=== PATIENT | female | born 1950 | race Caucasian/White ===

== ENCOUNTER 2023-04-25 09:11 | Emergency (ER) | payer MEDICARE, SELFPAY ==
[2023-04-25 09:16] VITALS: BP 136/86; PULSE 78; RESP 18; TEMP 36.8; O2SAT 98; BMI 21.9
--- NOTE | 2023-04-25 09:30 | ED_ITS ---
HPI - Nausea/Vomiting/Diarrhea General Chief complaint: Nausea/Vomiting/Diarrhea Stated complaint: ABDMOINAL PAIN/ DIARREAH Time Seen by Provider: 04/25/23 09:16 Source: patient Source comment: patient Mode of arrival: walk-in Limitations: no limitations History of Present Illness HPI Narrative: 73-year-old female presents for diarrhea. She's been having it several times a day for five days. She saw specks of blood in it but otherwise no blood. She's been a little bit nauseous but no vomiting. No fever. No recent hospitalizations or antibiotic usage and no family members aren't ill. Related Data Home Medications Medication Instructions Recorded Confirmed amlodipine 5 mg tablet 5 mg PO DAILY 04/25/23 04/25/23 aspirin 81 mg capsule 81 mg PO DAILY 04/25/23 04/25/23 atenolol 50 mg tablet 50 mg PO Q24H 04/25/23 04/25/23 chlorthalidone 25 mg tablet 25 mg PO DAILY 04/25/23 04/25/23 citalopram 20 mg tablet 20 mg PO DAILY 04/25/23 04/25/23 coffee extract 100 mg-phosphatidyl cap PO 04/25/23 serine 100 mg capsule (Neuriva Original) multivitamin (Daily Multi-Vitamin 1 tab PO DAILY 04/25/23 04/25/23 tablet) potassium chloride 10 mEq 10 meq PO DAILY 04/25/23 04/25/23 tablet,extended release simvastatin 20 mg tablet 20 mg PO DAILY 04/25/23 04/25/23 Allergies Allergy/AdvReac Type Severity Reaction Status Date / Time No Known Drug Allergies Allergy Verified 04/25/23 09:19 Review of Systems ROS Narrative A ten point review of systems is negative except as noted above. PFSH PFSH Social History Smoking status: Never smoker Exam Narrative Exam Narrative: Nurses note and vital signs reviewed and patient is not hypoxic. General: The patient appears well and in no apparent distress. Patient is resting comfortably on cart. Skin: Warm, dry, no pallor noted. There is no rash noted. Head: Normocephalic, atraumatic Eye: Normal conjunctiva, no drainage Ears, Nose, Mouth, and Throat: oral mucosa is mildly dry Cardiovascular: Regular Rate and Rhythm Respiratory: Patient is in no distress, no accessory muscle use, lungs are clear to auscultation, no wheezing, rales or rhonchi Back: non-tender GI: Normal bowel sounds, no tenderness to palpation, no masses appreciated. No rebound, guarding, or rigidity noted. Musculoskeletal: The patient has no evidence of calf tenderness, no pitting edema, symmetrical pulses noted bilaterally Neurological: A&O, normal speech Psychiatric: Cooperative Constitutional Vital Signs, click to edit/add: Last Vital Signs Temp 98.3 F 04/25/23 10:01 Pulse 78 04/25/23 13:32 Resp 16 04/25/23 13:32 BP 115/63 04/25/23 13:32 Pulse Ox 96 04/25/23 13:32 O2 Del Method Room Air 04/25/23 09:16 Course Vital Signs Vital signs: Vital Signs Temperature 98.3 F 04/25/23 09:16 Pulse Rate 78 04/25/23 09:16 Respiratory Rate 18 04/25/23 09:16 Blood Pressure 136/86 H 04/25/23 09:16 Pulse Oximetry 98 04/25/23 09:16 Oxygen Delivery Method Room Air 04/25/23 09:16 Temperature 98.3 F 04/25/23 10:01 Pulse Rate 78 04/25/23 13:32 Respiratory Rate 16 04/25/23 13:32 Blood Pressure 115/63 04/25/23 13:32 Pulse Oximetry 96 04/25/23 13:32 Oxygen Delivery Method Room Air 04/25/23 09:16 MDM - Nausea/Vomiting/Diarrhea MDM Narrative Medical decision making narrative: blood work is unremarkable. CAT scan shows known stones in each kidney. She was unable to provide us a stool specimen. She's never had a colonoscopy and I've spoken to her about that issue and that she should talk to her family doctor about that. Her daughter and I have encouraged her to get a colonoscopy. She doesn't require admission to the hospital at this point. She was offered admission but feels that she can go home. Treatment diagnosis and follow-up were discussed with the patient and her daughter. Differential Diagnosis Differential diagnosis: Likely traveler's diarrhea, food poisoning, gastroenteritis and dehydration Lab Data Attestation: I reviewed the patient's lab results. Labs: Lab Results 04/25/23 04/25/23 Range/Units 09:25 10:20 WBC 11.1 H (4.0-11.0) 10^3/uL RBC 4.58 (4.20-5.40) 10^6/uL Hgb 13.8 (12.0-16.0) g/dL Hct 39.9 (36.0-48.0) % MCV 87.1 (81.0-99.0) fL MCH 30.1 (26.7-34.0) pg MCHC 34.6 (29.9-35.2) g/dL RDW 12.3 (11.0-15.0) % Plt Count 251 (150-450) 10^3/uL MPV 9.3 L (9.5-13.5) fL Neut % (Auto) 74.8 (43.0-75.0) % Lymph % (Auto) 17.5 L (20.5-60.0) % Bartholomew % (Auto) 6.9 (1.7-12.0) % Eos % (Auto) 0.3 L (0.9-7.0) % Baso % (Auto) 0.3 (0.2-2.0) % Neut # (Auto) 8.3 H (1.4-6.5) 10^3/uL Lymph # (Auto) 2.0 (1.2-3.8) 10^3/uL Bartholomew # (Auto) 0.8 (0.3-0.8) 10^3/uL Eos # (Auto) 0.0 (0.0-0.7) 10^3/uL Baso # (Auto) 0.0 (0.0-0.1) 10^3/uL Abs Immat Gran (auto) 0.02 (0.00-0.03) 10^3/uL Imm/Tot Granulo (auto) 0.2 (0.0-0.5) % Sodium 135 L (136-145) mmol/L Potassium 2.5 L* (3.5-5.1) mmol/L Chloride 96 L (98-107) mmol/L Carbon Dioxide 28.4 (21.0-32.0) mmol/L Anion Gap 13.1 BUN 17.0 (7.0-18.0) mg/dL Creatinine 0.99 (0.55-1.02) mg/dL Est GFR ( Amer) >60 (>=60) Est GFR (Non-Af Amer) 55 L (>=60) BUN/Creatinine Ratio 17.2 Glucose 128 H (74-106) mg/dL Calcium 9.9 (8.5-10.1) mg/dL Urine Color Yellow (YELLOW) Urine Clarity Clear (CLEAR) Urine pH 6.0 (5.0-9.0) Ur Specific Basye 1.010 (1.005-1.025) Urine Protein Negative (NEG/TRACE) mg/dL Urine Glucose (UA) Negative (NEGATIVE) mg/dL Urine Ketones 40 A (NEGATIVE) mg/dL Urine Occult Blood Trace-i (NEGATIVE) Urine Nitrite Negative (NEGATIVE) Urine Bilirubin Negative (NEGATIVE) Urine Urobilinogen 0.2 (0.2-1.0) EU/dL Ur Leukocyte Esterase Negative (NEGATIVE) Discharge Plan Discharge Chief Complaint: Nausea/Vomiting/Diarrhea Clinical Impression: Diarrhea Patient Disposition: Home, Self-Care Time of Disposition Decision: 13:52 Condition: Good Mode of Transportation: Private Vehicle Prescriptions / Home Meds: No Action amlodipine 5 mg tablet 5 mg PO DAILY atenolol 50 mg tablet 50 mg PO Q24H chlorthalidone 25 mg tablet 25 mg PO DAILY citalopram 20 mg tablet 20 mg PO DAILY potassium chloride 10 mEq tablet extended release 10 meq PO DAILY simvastatin 20 mg tablet 20 mg PO DAILY aspirin 81 mg capsule 81 mg PO DAILY Neuriva Original 100-100 mg capsule PO multivitamin [Daily Multi-Vitamin] Tablet 1 tab PO DAILY Instructions: Chronic Diarrhea (ED) Stand Alone Forms: Portal Instructions Referrals: DEBBIE VARGAS [Primary Care Provider] - 1 week
[2023-04-25] MEDS: 0.9 % SODIUM CHLORIDE 1,000 ML 1000 ML IV (09:36)
[2023-04-25] MEDS: ONDANSETRON PF 4 MG/2 ML VIAL IV (09:36)
[2023-04-25 09:56] LABS: Basophils Percent Auto 0.3 % (0.2-2.0); Eosinophils Percent Auto 0.3 % (0.9-7.0); Hematocrit 39.9 % (36.0-48.0); Hemoglobin 13.8 g/dL (12.0-16.0); Immature Granulocytes Abs Auto 0.02 10^3/uL (0.00-0.03); Immature Granulocytes Pct Auto 0.2 % (0.0-0.5); Lymphocytes Percent Auto 17.5 % (20.5-60.0); Mean Corpuscular HGB Conc 34.6 g/dL (29.9-35.2); Mean Corpuscular Hemoglobin 30.1 pg (26.7-34.0); Mean Corpuscular Volume 87.1 fL (81.0-99.0); Mean Platelet Volume 9.3 fL (9.5-13.5); Monocytes Absolute Auto 0.8 10^3/uL (0.3-0.8); Monocytes Percent Auto 6.9 % (1.7-12.0); Neutrophils Absolute Auto 8.3 10^3/uL (1.4-6.5); Neutrophils Percent Auto 74.8 % (43.0-75.0); Platelet Count 251 10^3/uL (150-450); Red Blood Count 4.58 10^6/uL (4.20-5.40); Red Cell Distribution Width 12.3 % (11.0-15.0); White Blood Count 11.1 10^3/uL (4.0-11.0)
[2023-04-25 10:01] VITALS: TEMP 36.8
[2023-04-25 10:04] LABS: Anion Gap 13.1; BUN Creatinine Ratio 17.2; Calcium 9.9 mg/dL (8.5-10.1); Carbon Dioxide 28.4 mmol/L (21.0-32.0); Chloride 96 mmol/L (98-107); Estimated GFR (African America >60 (>=60); Estimated GFR (Non-African Ame 55 (>=60); Glucose 128 mg/dL (74-106); Sodium 135 mmol/L (136-145)
[2023-04-25 10:07] LABS: Potassium 2.5 mmol/L (3.5-5.1)
[2023-04-25] MEDS: LORAZEPAM 2 MG/ML 1 ML VIAL 0.5 MG IV (10:14)
[2023-04-25 10:32] VITALS: BP 123/55; PULSE 77; RESP 18; O2SAT 99
--- NOTE | 2023-04-25 11:11 | CT_ITS ---
The [address] [address] Patient Name: MIGUEL ANGEL MCDONALD MRN: [id number] date: 1950 Sex: F Assigned Patient Location: ER Current Patient Location: ER Accession/Order Number: [id number] Exam Date: 04/25/2023 11:15 Report Date: 04/25/2023 11:54 At the request of: ALEXANDRA HASSAN Procedure: CT abdomen pelvis wo con EXAM: CT abdomen pelvis wo con INDICATION: r/o kidney stone. Diarrhea for 4 days. COMPARISON: None. TECHNIQUE: Multiple contiguous axial CT images of the abdomen and pelvis were obtained without the use of intravenous contrast. Sagittal and coronal reconstructions were performed. Dose reduction techniques were achieved by using: automated exposure control and/or adjustment of mA and /or kV according to patient size and/or use of iterative reconstruction technique. FINDINGS: Evaluation of visceral organs limited by noncontrast technique. LOWER CHEST: Bibasilar subsegmental atelectasis. ABDOMEN AND PELVIS: Liver: Unremarkable. Biliary System: Normal gallbladder. No biliary ductal dilatation. Pancreas: Unremarkable. Spleen: Unremarkable. Adrenal Glands: Normal. Urinary System: Multiple nonobstructing bilateral renal stones measuring up to 7 mm. Left renal cysts, largest measuring 2.5 cm. No ureteral calculi or hydronephrosis. Normal bladder. Gastrointestinal Tract: Normal caliber bowel. No bowel wall thickening or inflammation. Normal appendix. Colonic diverticulosis without diverticulitis. Reproductive organs: Suspected calcified intramural fibroid. Vessels: Nonaneurysmal abdominal aorta with mild atherosclerotic calcifications. Lymph Nodes: No adenopathy. Peritoneum: No ascites or pneumoperitoneum. MUSCULOSKELETAL: Soft tissues: Unremarkable soft tissues. Bones: No acute osseous abnormality or suspicious osseous lesion. There are 1 anterolisthesis of L4 on L5. IMPRESSION: 1. No acute abdominal or pelvic process. 2. Bilateral nephrolithiasis. 3. Colonic diverticulosis without diverticulitis. Electronically authenticated by: TYLER PAREKH Date: 04/25/2023 11:54
[2023-04-25 11:54] VITALS: BP 115/70; PULSE 77; RESP 16; O2SAT 97
[2023-04-25 13:06] LABS: Bilirubin Urine NEGATIVE (NEGATIVE); Blood Urine TRACE-I (NEGATIVE); Clarity Urine CLEAR (CLEAR); Color Urine YELLOW (YELLOW); Glucose Urine UA NEGATIVE (NEGATIVE); Ketones Urine 40 mg/dL (NEGATIVE); Leukocyte Esterase Urine NEGATIVE (NEGATIVE); Nitrite Urine NEGATIVE (NEGATIVE); Protein Urine NEGATIVE (NEG/TRACE); Urobilinogen Urine 0.2 EU/dL (0.2-1.0)
[2023-04-25 13:32] VITALS: BP 115/63; PULSE 78; RESP 16; O2SAT 96
[2023-04-25 13:41] LABS: Urine Microscopic Indicated YES
[2023-04-25 13:55] LABS: Squamous Epithelial Cell Urine FEW #/LPF (NONE/RARE); WBC Urine 0-2 #/HPF (NONE SEEN)
[2023-04-25 13:56] LABS: Bacteria Urine TRACE #/HPF (NONE SEEN); Cast Seen? SEEN #/LPF (NONE SEEN); Crystals Seen? None Seen #/HPF (None Seen); Hyaline Casts Urine RARE; Mucus Urine TRACE (NONE SEEN); Urine Culture Indicated NO
[2023-04-25 14:03] VITALS: BP 119/59; PULSE 74; RESP 20; TEMP 36.7; O2SAT 97
== END 2023-04-25 14:06 | disposition home or self-care (01) ==
PROVIDERS: Emergency Provider Emergency Medicine; PCP Family Medicine
DX: R19.7 Diarrhea, unspecified (principal); N20.0 Calculus of kidney; Z79.82 Long term (current) use of aspirin; Z79.899 Other long term (current) drug therapy
CPT/HCPCS: 36415; 74176; 80048; 81003; 81015; 85025; 87045; 87493; 96361; 96374; 96375; 99285

== ENCOUNTER 2023-05-01 08:44 | Outpatient (REF) | payer MEDICARE, SELFPAY | END 2023-05-01 08:45 | disposition home or self-care (01) | LOC: LAB 08:44 | PROVIDERS: PCP Family Medicine; Visit Provider Family Medicine | DX: R19.7 Diarrhea, unspecified (principal) | CPT/HCPCS: 83631; 87045; 87046; 87177; 87209; 87425; 87427; 87493; G0328 ==

== ENCOUNTER 2023-05-02 17:56 | Observation (INO) | payer MEDICARE, SELFPAY ==
[2023-05-02 18:04] VITALS: BP 121/69; PULSE 69; RESP 18; TEMP 37.3; O2SAT 97; BMI 21.9
--- NOTE | 2023-05-02 18:19 | PC.NURSE ---
Pt has had diarrhea since April 18. Pt brought 2 stool samples to the [facility] one on Wednesday the and again on the . Pt has been having increasing confusion over the last 2 days and pt's PCP told the family to take her to the ER if this startd to happen again. Family states pt has had this happen in the past when she had a kidney stone. Pt denies any urinary symptoms at this time. Pt unable to answer questions at time of triage. Pt looked to family to answer most questions. Per family pt is normally able to carry on full conversations with no issues.
--- NOTE | 2023-05-02 18:21 | ED_ITS ---
Documented by User: BRANDI Linares 05/02/23 20:35 HPI - General Adult General Chief complaint: Nausea/Vomiting/Diarrhea Stated complaint: DIARRHEA SINCE APRIL 18 Time Seen by Provider: 05/02/23 18:20 Source: patient Mode of arrival: walk-in Limitations: no limitations History of Present Illness HPI narrative: patient is a 73-year-old female presents to the Emergency Room with her children for evaluation of altered mental status. Patient started with diarrhea in April, has had up to 3-4 watery stools a day, she's had similar episode back in August that self resolved, the patient has declined to go for gastrointestinal consultatioon or colonoscopy for further investigation. The patient lives alone by herself, family checks on her regularly. She can typically balance her rolo ckbook but does require supervision. Patient today is unable to tell me the day or the month. She is alert to her name and her children. She is vague describing her recent symptoms in the family states her change in mentation started on Wednesday. Patient provided a stool sample outpatient, and was seen on April 25 for her diarrhea. The patient currently denies any chest pain or shortness of breath. She reports abdominal pain and cramping only with episodes of diarrhea which typically comes after eating. Family fears she has not been eating well because she has diarrhea and they have noted some progressive weight loss over the past six months. The patient had a admission at [facility] [place] last year for large kidney stone removal. Patient appears in no distress, her gait appears slightly off balance, but manageable. Family states that her mentation and gait are new changes from Wednesday. MD complaint: patient taking Imodium with temporary relief Related Data Home Medications Medication Instructions Recorded Confirmed amlodipine 5 mg tablet 5 mg PO DAILY 04/25/23 05/03/23 aspirin 81 mg capsule 81 mg PO DAILY 04/25/23 05/03/23 atenolol 50 mg tablet 50 mg PO Q24H 04/25/23 05/03/23 chlorthalidone 25 mg tablet 25 mg PO DAILY 04/25/23 05/03/23 citalopram 20 mg tablet 20 mg PO DAILY 04/25/23 05/03/23 coffee extract 100 mg-phosphatidyl 2 cap PO DAILY 04/25/23 05/03/23 serine 100 mg capsule (Neuriva Original) multivitamin (Daily Multi-Vitamin 1 tab PO DAILY 04/25/23 05/03/23 tablet) potassium chloride 10 mEq 10 meq PO DAILY 04/25/23 05/03/23 tablet,extended release simvastatin 20 mg tablet 20 mg PO DAILY 04/25/23 05/03/23 Allergies Allergy/AdvReac Type Severity Reaction Status Date / Time No Known Drug Allergies Allergy Verified 04/25/23 09:19 Review of Systems ROS Narrative limited review of systems, confirmed with patient's family at bedside Constitutional Reports: change in weight, fatigue and malaise; Denies: fever Eyes Denies: change in vision Cardiovascular Denies: chest pain Respiratory Denies: shortness of breath or cough Gastrointestinal Reports: diarrhea Genitourinary Denies: painful urination or urinary frequency Integumentary/Breast Denies: rash or itching Neurological Denies: headache Psychiatric Denies: anxiety PFSH PFSH Social History Within the past year, how often did you have a drink containing alcohol: never Within the past year, how often did you have six or more drinks on one occasion: never Score interpretation: A score less than 3 is consistent with normal alcohol consumption. Smoking status: Never smoker Second hand tobacco smoke exposure: No Non-prescribed substance use: denies use Previous occupational history: [employer] Highest level of school completed/degree received: high school graduate Are you now , , , , never or living with a partner: In a typical week, how many times do you talk on the telephone with family, friends, or neighbors: 3 or more times per week How often do you get together with friends or relatives: 3 or more times per week How often do you attend buddhist or zoroastrian services: 4 or more times per year Do you belong to any clubs or organizations such as buddhist groups unions, fraternal or athletic groups, or school groups: no Total score: 2 Score interpretation: A score of greater than or equal to 2 indicates the lowest level of social isolation. Little interest or pleasure in doing things: not at all Feeling down, depressed, or hopeless: not at all Feel stressed/tense/nervous/anxious/difficulty sleeping: not at all Do you think of yourself as: straight/heterosexual Gender Identity: female Exam Narrative Exam Narrative: Vital signs and nurses notes reviewed. The patient is not hypoxic. General: The patient appears well and in no apparent distress. Patient is resting comfortably on cart.patient observed while walking appears unsteady. Skin: Warm, dry, no pallor noted. The patient has no evidence of rash, petechiae, or purpura noted. Head: Normocephalic, atraumatic, no temporal arterial tenderness Neck: Supple, trachea mid-line, no tenderness, no lymphadenopathy. No meningeal signs. No nuchal rigidity.no carotid bruit Eye: Pupils are equal, round and reactive to light, EOMI, patient wearing glasses Ears, Nose, Mouth, and Throat: Oral mucosa is moist, TMs are clear bilaterally, no hemotympanum noted.patient has hearing aids bilaterally Cardiovascular: Regular Rate and Rhythm, no prominent murmur, Respiratory: Patient is in no distress, no accessory muscle use, lungs are clear to auscultation, no wheezing, rales or rhonchi Back: non-tender, no CVA tenderness Musculoskeletal: normal ROM, no tenderness, no swelling, normal strength 5/5. Normal pulses to radial 2+ bilaterally and 2+ at DP and PT bilaterally and symmetrically. GI: Normal bowel sounds, no tenderness to palpation, no masses appreciated. No rebound, guarding, or rigidity noted. Neurological: A&O person and place, unaware of date or month., normal equal cattle rancher strength, normal finger to nose, no pronator drift. The patient is off balance with ambulation. The patient has normal speech. The patient has normal coordination with heel to ruiz, but does require multiple prompting to follow commands . Normal motor and sensory observed. Psychiatric: Cooperative Constitutional Vital Signs, click to edit/add: Last Vital Signs Temp 98.3 F 05/04/23 05:23 Pulse 62 05/04/23 10:06 Resp 16 05/04/23 05:23 BP 145/78 H 05/04/23 05:23 Pulse Ox 95 05/04/23 05:23 O2 Del Method Room Air 05/04/23 05:23 Course Vital Signs Vital signs: Vital Signs Temperature 99.1 F 05/02/23 18:04 Pulse Rate 69 05/02/23 18:04 Respiratory Rate 18 05/02/23 18:04 Blood Pressure 121/69 H 05/02/23 18:04 Pulse Oximetry 97 05/02/23 18:04 Oxygen Delivery Method Room Air 05/02/23 18:04 Temperature 98.3 F 05/04/23 05:23 Pulse Rate 62 05/04/23 10:06 Respiratory Rate 16 05/04/23 05:23 Blood Pressure 145/78 H 05/04/23 05:23 Pulse Oximetry 95 05/04/23 05:23 Oxygen Delivery Method Room Air 05/04/23 05:23 Medical Decision Making MDM Narrative Medical decision making narrative: patient with diarrhea for multiple weeks, change in mentation noted Wednesday, patient appears pleasantly confused, off balance with ambulation. Patient without any complaints of pain or discomfort, denies chest pain or shortness of breath. NIH= 1 ( month/ Age) patient with no prior history of stroke, we discussed her mental status changes. CT findings. Patient was found to be low on potassium and magnesium, she was given 50 mEq by mouth, magnesium 2 g IV. Patient had urinalysis without evidence of infection. Recommended admission for further evaluation of patient's altered mental status in the setting of her chronic diarrhea. urinalysis without evidence of infection, sedimentation rate and CRP within normal limits. Lactic acid was elevated. Patient receiving IV fluid bolus, we discussed her CT of the head concerning for possible remote stroke, given her change in mentation since Wednesday recommend admission for further evaluation. Spoke with Dr. Pierson hospitalist who agreed to admit observation [facility] on telemetry. Patient and family agreeable to admission for further evaluation of altered mental status Medical Records Medical records reviewed: Yes I reviewed the patient's medical records Medical records narrative: Procedure: CT abdomen pelvis wo con EXAM: CT abdomen pelvis wo con INDICATION: r/o kidney stone. Diarrhea for 4 days. COMPARISON: None. TECHNIQUE: Multiple contiguous axial CT images of the abdomen and pelvis were obtained without the use of intravenous contrast. Sagittal and coronal reconstructions were performed. Dose reduction techniques were achieved by using: automated exposure control and/or adjustment of mA and /or kV according to patient size and/or use of iterative reconstruction technique. FINDINGS: Evaluation of visceral organs limited by noncontrast technique. LOWER CHEST: Bibasilar subsegmental atelectasis. ABDOMEN AND PELVIS: Liver: Unremarkable. Biliary System: Normal gallbladder. No biliary ductal dilatation. Pancreas: Unremarkable. Spleen: Unremarkable. Adrenal Glands: Normal. Urinary System: Multiple nonobstructing bilateral renal stones measuring up to 7 mm. Left renal cysts, largest measuring 2.5 cm. No ureteral calculi or hydronephrosis. Normal bladder. Gastrointestinal Tract: Normal caliber bowel. No bowel wall thickening or inflammation. Normal appendix. Colonic diverticulosis without diverticulitis. Reproductive organs: Suspected calcified intramural fibroid. Vessels: Nonaneurysmal abdominal aorta with mild atherosclerotic calcifications. Lymph Nodes: No adenopathy. Peritoneum: No ascites or pneumoperitoneum. MUSCULOSKELETAL: Soft tissues: Unremarkable soft tissues. Bones: No acute osseous abnormality or suspicious osseous lesion. There are 1 anterolisthesis of L4 on L5. IMPRESSION: 1. No acute abdominal or pelvic process. 2. Bilateral nephrolithiasis. 3. Colonic diverticulosis without diverticulitis. Electronically authenticated by: TYLER PAREKH Date: 04/25/2023 11:54 Lab Data Labs: Lab Results 05/02/23 05/02/23 05/02/23 Range/Units 18:30 19:21 19:24 WBC 6.8 (4.0-11.0) 10^3/uL RBC 4.00 L (4.20-5.40) 10^6/uL Hgb 12.2 (12.0-16.0) g/dL Hct 35.7 L (36.0-48.0) % MCV 89.3 (81.0-99.0) fL MCH 30.5 (26.7-34.0) pg MCHC 34.2 (29.9-35.2) g/dL RDW 12.4 (11.0-15.0) % Plt Count 211 (150-450) 10^3/uL MPV 9.6 (9.5-13.5) fL Neut % (Auto) 51.8 (43.0-75.0) % Lymph % (Auto) 34.0 (20.5-60.0) % [place] % (Auto) 11.9 (1.7-12.0) % Eos % (Auto) 1.8 (0.9-7.0) % Baso % (Auto) 0.4 (0.2-2.0) % Neut # (Auto) 3.5 (1.4-6.5) 10^3/uL Lymph # (Auto) 2.3 (1.2-3.8) 10^3/uL [place] # (Auto) 0.8 (0.3-0.8) 10^3/uL Eos # (Auto) 0.1 (0.0-0.7) 10^3/uL Baso # (Auto) 0.0 (0.0-0.1) 10^3/uL Abs Immat Gran (auto) 0.01 (0.00-0.03) 10^3/uL Imm/Tot Granulo (auto) 0.1 (0.0-0.5) % ESR 23 (<=30) mm/hr PT 11.6 (9.0-11.6) sec INR 1.10 Sodium 134 L (136-145) mmol/L Potassium 2.7 L* (3.5-5.1) mmol/L Chloride 95 L (98-107) mmol/L Carbon Dioxide 30.6 (21.0-32.0) mmol/L Anion Gap 11.1 BUN 21.0 H (7.0-18.0) mg/dL Creatinine 0.99 (0.55-1.02) mg/dL Est GFR ( Amer) >60 (>=60) Est GFR (Non-Af Amer) 55 L (>=60) BUN/Creatinine Ratio 21.2 Glucose 140 H (74-106) mg/dL Lactate 2.3 H* (0.4-2.0) mmol/L Calcium 9.3 (8.5-10.1) mg/dL Magnesium 1.7 L (1.8-2.4) mg/dL Total Bilirubin 0.5 (0.2-1.0) mg/dL AST 17 (15-37) U/L ALT 9 L (14-59) U/L Alkaline Phosphatase 52 (46-116) U/L Ammonia 26 (11-32) umol/L Troponin I High Sens 7.5 (4.0-51.3) pg/mL C-Reactive Protein <1.0 (<=1.0) mg/dL Total Protein 7.0 (6.4-8.2) g/dL Albumin 3.7 (3.4-5.0) g/dL Globulin 3.3 g/dL Albumin/Globulin Ratio 1.1 Lipase 87.0 (73.0-393.0) U/L TSH 1.963 (0.358-3.740) uIU/mL Urine Color Yellow (YELLOW) Urine Clarity Clear (CLEAR) Urine pH 7.0 (5.0-9.0) Ur Specific [place] 1.015 (1.005-1.025) Urine Protein Negative (NEG/TRACE) mg/dL Urine Glucose (UA) Negative (NEGATIVE) mg/dL Urine Ketones Negative (NEGATIVE) mg/dL Urine Occult Blood Negative (NEGATIVE) Urine Nitrite Negative (NEGATIVE) Urine Bilirubin Negative (NEGATIVE) Urine Urobilinogen 0.2 (0.2-1.0) EU/dL Ur Leukocyte Esterase Negative (NEGATIVE) Salicylates <2.8 (<=19.9) mg/dL Acetaminophen <2.0 L (10.0-30.0) ug/mL Ethanol Quant <3 mg/dL , patient's outpatient stool samples negative Shigella and Escherichia coli, negative C. difficile, pending results for salmonella and Campylobacter. Imaging Data CT scan - head: Radiologist's impression: Procedure: CT head/brain wo con EXAM: CT scan of the head without contrast. Dose reduction technique used: Automated exposure control and/or adjustment of the mA and/or kV according to patient size and/or use of iterative reconstruction technique. REASON FOR EXAM: altered mental status COMPARISON: None FINDINGS: Extensive left hemisphere low-attenuation changes. No intracranial hemorrhage, mass effect, midline shift, fractures or evidence of acute ischemic infarct. No hydrocephalus. Mild generalized cerebral and cerebellar volume loss. Mild small vessel gliosis. Paranasal sinuses and mastoid air cells are clear. Remainder unremarkable. IMPRESSION: 1. Extensive left hemisphere low-attenuation changes are likely related to old infarct or encephalomalacia, correlate with any prior outside imaging or consider follow-up evaluation with MRI. 2. Otherwise, no acute intracranial abnormalities. Electronically authenticated by: CARMENZA DE JESUS Date: 05/02/2023 19:49 Chest x-ray: Radiologist's impression: Procedure: XR chest 1V Exam: Radiographs: XR chest 1V Reason for exam: confusion, alter mental status Comparison: None IMPRESSION: Minimal scarring or linear atelectasis in the left lower lung. Pulmonary venous hypertension. Remainder of the chest is unremarkable Electronically authenticated by: CARMENZA LTG Exam Prep PlatformJASE Date: 05/02/2023 20:11 ECG Data Interpretation: EKG 64 bpm, first-degree AV block incomplete right bundle branch block suspected. No acute ST elevation. Discharge Plan Discharge Chief Complaint: Nausea/Vomiting/Diarrhea Clinical Impression: Diarrhea, Electrolyte imbalance, Altered mental status Patient Disposition: Admitted as Observation Time of Disposition Decision: 20:35 Condition: Fair Discharge Date/Time: 05/02/23 22:30 Documented by User: Jolene Kaplan MD 05/04/23 11:09 HPI - General Adult General Chief complaint: Nausea/Vomiting/Diarrhea Stated complaint: DIARRHEA SINCE APRIL 18 Time Seen by Provider: 05/02/23 18:20 Related Data Home Medications Medication Instructions Recorded Confirmed amlodipine 5 mg tablet 5 mg PO DAILY 04/25/23 05/03/23 aspirin 81 mg capsule 81 mg PO DAILY 04/25/23 05/03/23 atenolol 50 mg tablet 50 mg PO Q24H 04/25/23 05/03/23 chlorthalidone 25 mg tablet 25 mg PO DAILY 04/25/23 05/03/23 citalopram 20 mg tablet 20 mg PO DAILY 04/25/23 05/03/23 coffee extract 100 mg-phosphatidyl 2 cap PO DAILY 04/25/23 05/03/23 serine 100 mg capsule (Neuriva Original) multivitamin (Daily Multi-Vitamin 1 tab PO DAILY 04/25/23 05/03/23 tablet) potassium chloride 10 mEq 10 meq PO DAILY 04/25/23 05/03/23 tablet,extended release simvastatin 20 mg tablet 20 mg PO DAILY 04/25/23 05/03/23 Allergies Allergy/AdvReac Type Severity Reaction Status Date / Time No Known Drug Allergies Allergy Verified 04/25/23 09:19 PFSH PFS Social History Within the past year, how often did you have a drink containing alcohol: never Within the past year, how often did you have six or more drinks on one occasion: never Score interpretation: A score less than 3 is consistent with normal alcohol consumption. Smoking status: Never smoker Second hand tobacco smoke exposure: No Non-prescribed substance use: denies use Previous occupational history: [employer] Highest level of school completed/degree received: high school graduate Are you now , , , , never or living with a partner: In a typical week, how many times do you talk on the telephone with family, friends, or neighbors: 3 or more times per week How often do you get together with friends or relatives: 3 or more times per week How often do you attend buddhist or zoroastrian services: 4 or more times per year Do you belong to any clubs or organizations such as buddhist groups unions, [employer] or athletic groups, or school groups: no Total score: 2 Score interpretation: A score of greater than or equal to 2 indicates the lowest level of social isolation. Little interest or pleasure in doing things: not at all Feeling down, depressed, or hopeless: not at all Feel stressed/tense/nervous/anxious/difficulty sleeping: not at all Do you think of yourself as: straight/heterosexual Gender Identity: female Exam Constitutional Vital Signs, click to edit/add: Last Vital Signs Temp 98.3 F 05/04/23 05:23 Pulse 62 05/04/23 10:06 Resp 16 05/04/23 05:23 BP 145/78 H 05/04/23 05:23 Pulse Ox 95 05/04/23 05:23 O2 Del Method Room Air 05/04/23 05:23 Course Vital Signs Vital signs: Vital Signs Temperature 99.1 F 05/02/23 18:04 Pulse Rate 69 05/02/23 18:04 Respiratory Rate 18 05/02/23 18:04 Blood Pressure 121/69 H 05/02/23 18:04 Pulse Oximetry 97 05/02/23 18:04 Oxygen Delivery Method Room Air 05/02/23 18:04 Temperature 98.3 F 05/04/23 05:23 Pulse Rate 62 05/04/23 10:06 Respiratory Rate 16 05/04/23 05:23 Blood Pressure 145/78 H 05/04/23 05:23 Pulse Oximetry 95 05/04/23 05:23 Oxygen Delivery Method Room Air 05/04/23 05:23 Medical Decision Making MDM Narrative Medical decision making narrative: patient with diarrhea for multiple weeks, change in mentation noted Wednesday, patient appears pleasantly confused, off balance with ambulation. Patient without any complaints of pain or discomfort, denies chest pain or shortness of breath. NIH= 1 ( month/ Age) patient with no prior history of stroke, we discussed her mental status gomez ges. CT findings. Patient was found to be low on potassium and magnesium, she was given 50 mEq by mouth, magnesium 2 g IV. Patient had urinalysis without evidence of infection. Recommended admission for further evaluation of patient's altered mental status in the setting of her chronic diarrhea. urinalysis without evidence of infection, sedimentation rate and CRP within normal limits. Lactic acid was elevated. Patient receiving IV fluid bolus, we discussed her CT of the head concerning for possible remote stroke, given her change in mentation since Wednesday recommend admission for further evaluation. Spoke with Dr. Pierson hospitalist who agreed to admit observation [facility] on telemetry. Patient and family agreeable to admission for further evaluation of altered mental status Attending physician attestation I have reviewed the mid-level documentation, agree with the documentation, medical decision making and treatment plan as outlined by the mid-level provider. Lab Data Labs: Lab Results 05/02/23 05/02/23 05/02/23 Range/Units 18:30 19:21 19:24 WBC 6.8 (4.0-11.0) 10^3/uL RBC 4.00 L (4.20-5.40) 10^6/uL Hgb 12.2 (12.0-16.0) g/dL Hct 35.7 L (36.0-48.0) % MCV 89.3 (81.0-99.0) fL MCH 30.5 (26.7-34.0) pg MCHC 34.2 (29.9-35.2) g/dL RDW 12.4 (11.0-15.0) % Plt Count 211 (150-450) 10^3/uL MPV 9.6 (9.5-13.5) fL Neut % (Auto) 51.8 (43.0-75.0) % Lymph % (Auto) 34.0 (20.5-60.0) % [place] % (Auto) 11.9 (1.7-12.0) % Eos % (Auto) 1.8 (0.9-7.0) % Baso % (Auto) 0.4 (0.2-2.0) % Neut # (Auto) 3.5 (1.4-6.5) 10^3/uL Lymph # (Auto) 2.3 (1.2-3.8) 10^3/uL [place] # (Auto) 0.8 (0.3-0.8) 10^3/uL Eos # (Auto) 0.1 (0.0-0.7) 10^3/uL Baso # (Auto) 0.0 (0.0-0.1) 10^3/uL Abs Immat Gran (auto) 0.01 (0.00-0.03) 10^3/uL Imm/Tot Granulo (auto) 0.1 (0.0-0.5) % ESR 23 (<=30) mm/hr PT 11.6 (9.0-11.6) sec INR 1.10 Sodium 134 L (136-145) mmol/L Potassium 2.7 L* (3.5-5.1) mmol/L Chloride 95 L (98-107) mmol/L Carbon Dioxide 30.6 (21.0-32.0) mmol/L Anion Gap 11.1 BUN 21.0 H (7.0-18.0) mg/dL Creatinine 0.99 (0.55-1.02) mg/dL Est GFR ( Amer) >60 (>=60) Est GFR (Non-Af Amer) 55 L (>=60) BUN/Creatinine Ratio 21.2 Glucose 140 H (74-106) mg/dL Lactate 2.3 H* (0.4-2.0) mmol/L Calcium 9.3 (8.5-10.1) mg/dL Magnesium 1.7 L (1.8-2.4) mg/dL Total Bilirubin 0.5 (0.2-1.0) mg/dL AST 17 (15-37) U/L ALT 9 L (14-59) U/L Alkaline Phosphatase 52 (46-116) U/L Ammonia 26 (11-32) umol/L Troponin I High Sens 7.5 (4.0-51.3) pg/mL C-Reactive Protein <1.0 (<=1.0) mg/dL Total Protein 7.0 (6.4-8.2) g/dL Albumin 3.7 (3.4-5.0) g/dL Globulin 3.3 g/dL Albumin/Globulin Ratio 1.1 Lipase 87.0 (73.0-393.0) U/L TSH 1.963 (0.358-3.740) uIU/mL Urine Color Yellow (YELLOW) Urine Clarity Clear (CLEAR) Urine pH 7.0 (5.0-9.0) Ur Specific [place] 1.015 (1.005-1.025) Urine Protein Negative (NEG/TRACE) mg/dL Urine Glucose (UA) Negative (NEGATIVE) mg/dL Urine Ketones Negative (NEGATIVE) mg/dL Urine Occult Blood Negative (NEGATIVE) Urine Nitrite Negative (NEGATIVE) Urine Bilirubin Negative (NEGATIVE) Urine Urobilinogen 0.2 (0.2-1.0) EU/dL Ur Leukocyte Esterase Negative (NEGATIVE) Salicylates <2.8 (<=19.9) mg/dL Acetaminophen <2.0 L (10.0-30.0) ug/mL Ethanol Quant <3 mg/dL Discharge Plan Discharge Chief Complaint: Nausea/Vomiting/Diarrhea Clinical Impression: Diarrhea, Electrolyte imbalance, Altered mental status Patient Disposition: Admitted as Observation Time of Disposition Decision: 20:35 Condition: Fair Discharge Date/Time: 05/02/23 22:30
--- NOTE | 2023-05-02 18:59 | ECG_ITS ---
The [facility] Test Date: 2023-05-02 Pat Name: MIGUEL ANGEL MCDONALD Department: Room: - Gender: Female [employer] [address] Sql Developer: : 1950 Requested By: [id number] Order Number: [id number] Reading MD: CIARAN BA Measurements Intervals [place] Rate: 64 P: 6 IA: 220 QRS: 0 QRSD: 104 T: -51 QT: 446 QTc: 456 Interpretive Statements 1100 Sinus rhythm 2231 First degree AV block 2440 Incomplete right bundle branch block [address] depression 4164 Twave abnormality, possible anterior ischemia 9150 abnormal ECG No previous ECG available for comparison Electronically Signed On 05-03-2023 6:59:34 EDT by CIARAN BA
--- NOTE | 2023-05-02 18:59 | CT_ITS ---
The [address] [address] Patient Name: MIGUEL ANGEL MCDONALD MRN: [id number] date: 1950 Sex: F Assigned Patient Location: ER Current Patient Location: ER Accession/Order Number: [id number] Exam Date: 05/02/2023 19:26 Report Date: 05/02/2023 19:49 At the request of: OSCAR JAUREGUI Procedure: CT head/brain wo con EXAM: CT scan of the head without contrast. Dose reduction technique used: Automated exposure control and/or adjustment of the mA and/or kV according to patient size and/or use of iterative reconstruction technique. REASON FOR EXAM: altered mental status COMPARISON: None FINDINGS: Extensive left hemisphere low-attenuation changes. No intracranial hemorrhage, mass effect, midline shift, fractures or evidence of acute ischemic infarct. No hydrocephalus. Mild generalized cerebral and cerebellar volume loss. Mild small vessel gliosis. Paranasal sinuses and mastoid air cells are clear. Remainder unremarkable. CT/CT head/brain wo con IMPRESSION: 1. Extensive left hemisphere low-attenuation changes are likely related to old infarct or encephalomalacia, correlate with any prior outside imaging or consider follow-up evaluation with MRI. 2. Otherwise, no acute intracranial abnormalities. Electronically authenticated by: CARMENZA DE JESUS Date: 05/02/2023 19:49
--- NOTE | 2023-05-02 18:59 | XR_ITS ---
The [address] [address] Patient Name: MIGUEL ANGEL MCDONALD MRN: [id number] date: 1950 Sex: F Assigned Patient Location: ER Current Patient Location: ER Accession/Order Number: [id number] Exam Date: 05/02/2023 19:26 Report Date: 05/02/2023 20:11 At the request of: OSCAR JAUREGUI Procedure: XR chest 1V Exam: Radiographs: XR chest 1V Reason for exam: confusion, alter mental status Comparison: None XR/XR chest 1V IMPRESSION: Minimal scarring or linear atelectasis in the left lower lung. Pulmonary venous hypertension. Remainder of the chest is unremarkable Electronically authenticated by: CARMENZA DE JESUS Date: 05/02/2023 20:11
[2023-05-02 19:11] LABS: Basophils Percent Auto 0.4 % (0.2-2.0); Eosinophils Absolute Auto 0.1 10^3/uL (0.0-0.7); Eosinophils Percent Auto 1.8 % (0.9-7.0); Hematocrit 35.7 % (36.0-48.0); Hemoglobin 12.2 g/dL (12.0-16.0); Immature Granulocytes Abs Auto 0.01 10^3/uL (0.00-0.03); Immature Granulocytes Pct Auto 0.1 % (0.0-0.5); Lymphocytes Absolute Auto 2.3 10^3/uL (1.2-3.8); Mean Corpuscular HGB Conc 34.2 g/dL (29.9-35.2); Mean Corpuscular Hemoglobin 30.5 pg (26.7-34.0); Mean Corpuscular Volume 89.3 fL (81.0-99.0); Mean Platelet Volume 9.6 fL (9.5-13.5); Monocytes Absolute Auto 0.8 10^3/uL (0.3-0.8); Monocytes Percent Auto 11.9 % (1.7-12.0); Neutrophils Absolute Auto 3.5 10^3/uL (1.4-6.5); Neutrophils Percent Auto 51.8 % (43.0-75.0); Platelet Count 211 10^3/uL (150-450); Red Cell Distribution Width 12.4 % (11.0-15.0); White Blood Count 6.8 10^3/uL (4.0-11.0)
[2023-05-02 19:16] LABS: Erythrocyte Sedimentation Rate 23 mm/hr (<=30)
[2023-05-02 19:21] LABS: Prothrombin Time 11.6 sec (9.0-11.6)
--- NOTE | 2023-05-02 19:26 | PC.NURSE ---
Straight cath performed by this RN with Ana Rosa JAMISON at bedside. Pt tolerated well. UA obtained and sent to lab.
[2023-05-02 19:32] LABS: Bilirubin Urine NEGATIVE (NEGATIVE); Blood Urine NEGATIVE (NEGATIVE); Clarity Urine CLEAR (CLEAR); Color Urine YELLOW (YELLOW); Glucose Urine UA NEGATIVE (NEGATIVE); Ketones Urine NEGATIVE (NEGATIVE); Leukocyte Esterase Urine NEGATIVE (NEGATIVE); Nitrite Urine NEGATIVE (NEGATIVE); Protein Urine NEGATIVE (NEG/TRACE); Specific Gravity Urine 1.015 (1.005-1.025); Urobilinogen Urine 0.2 EU/dL (0.2-1.0)
[2023-05-02 19:33] LABS: Urine Microscopic Indicated NO
[2023-05-02 19:35] LABS: Alanine Aminotransferase 9 U/L (14-59); Albumin Globulin Ratio 1.1; Albumin Level 3.7 g/dL (3.4-5.0); Alkaline Phosphatase 52 U/L (46-116); Anion Gap 11.1; Aspartate Amino Transferase 17 U/L (15-37); BUN Creatinine Ratio 21.2; Bilirubin Total 0.5 mg/dL (0.2-1.0); Calcium 9.3 mg/dL (8.5-10.1); Carbon Dioxide 30.6 mmol/L (21.0-32.0); Chloride 95 mmol/L (98-107); Estimated GFR (African America >60 (>=60); Estimated GFR (Non-African Ame 55 (>=60); Globulin 3.3 g/dL; Glucose 140 mg/dL (74-106); Sodium 134 mmol/L (136-145); Thyroid Stimulating Hormone 1.963 uIU/mL (0.358-3.740); Troponin I High Sensitivity 7.5 pg/mL (4.0-51.3)
[2023-05-02 19:36] LABS: C Reactive Protein <1.0 mg/dL (<=1.0)
[2023-05-02 19:37] LABS: Acetaminophen <2.0 ug/mL (10.0-30.0); Ethanol <3 mg/dL; Potassium 2.7 mmol/L (3.5-5.1)
[2023-05-02 19:38] LABS: Lactate/Lactic Acid 2.3 mmol/L (0.4-2.0); Magnesium 1.7 mg/dL (1.8-2.4); Salicylate <2.8 mg/dL (<=19.9)
[2023-05-02 19:40] LABS: Ammonia 26 umol/L (11-32)
[2023-05-02] MEDS: POTASSIUM BICARBONATE/CIT 25 MEQ TABLET EFF 50 MEQ PO (20:10)
[2023-05-02] MEDS: 0.9 % SODIUM CHLORIDE 1,000 ML 999 ML IV (20:12)
[2023-05-02] MEDS: MAGNESIUM SULFATE IN WATER 50 ML IV (20:50)
[2023-05-02] MEDS: 0.9 % SODIUM CHLORIDE 1,000 ML 100 ML IV (20:51)
[2023-05-02 22:20] VITALS: BP 144/76; PULSE 67; RESP 16; TEMP 36.9; O2SAT 96; BMI 23.4
--- NOTE | 2023-05-02 22:42 | PC.NURSE ---
tele placed on pt prior to MS, Report complete by prior nurse. Pt belongings taken to pt's MS rm
[2023-05-02 22:43] VITALS: PULSE 67
[2023-05-02 23:57] VITALS: PULSE 59
[2023-05-03] VITALS (14 sets, daily range): BP systolic 144; BP diastolic 75–82; PULSE 56–77; RESP 16; TEMP 36.7–36.8; O2SAT 94–96; BMI 23.4
--- NOTE | 2023-05-03 00:51 | W.PM.TELEPN ---
Progress Note: Subjective Subjective Interval history: The patient is a 73-year-old female with a history of hypertension and unknown if she has some mild dementia, who was in her usual state of health until April 18 when she had some diarrhea. She was seen in the ER on April 25. She underwent a CT abdomen during that time. A stool culture was also done. She was noted to have hypokalemia and was given potassium supplements and was discharged home. She started developing some change in mental status over the last 2 days. Her daughter stated that she was more forgetful. She presented to the ED and she was noted to have hypokalemia. CT of the head showed old changes in the left hemisphere. She has a lactate of 2.3 and a magnesium of 1.7. The patient is an extremely poor historian and only knows that she is in the hospital. She does not know the year or the date. She does not know the president. There is no family at the bedside. Most of the history was obtained by the ER doctor. She is being admitted for change in mental status. Exam Narrative Exam Narrative: General : Alert and oriented x1 HEENT : Extraocular movements intact, pupils equal round and reactive to light and accommodation Neck: Supple, no JVD Chest: Clear to auscultation bilaterally, no wheezes Heart: Regular rate and rhythm, S1 and S2 heard Abdomen: Soft nontender nondistended. Extremities: No clubbing cyanosis or edema Neurologically: Moving all 4 extremities Skin: No rashes Constitutional Vital Signs, click to edit/add: Last Vital Signs Temp 98.4 F 05/02/23 22:20 Pulse 59 L 05/02/23 23:57 Resp 16 05/02/23 22:20 BP 144/76 H 05/02/23 22:20 Pulse Ox 96 05/02/23 22:20 O2 Del Method Room Air 05/02/23 22:20 Progress Note: Objective Labs Labs: Short CBC 05/02/23 Range/Units 18:30 WBC 6.8 (4.0-11.0) 10^3/uL Hgb 12.2 (12.0-16.0) g/dL Hct 35.7 L (36.0-48.0) % Plt Count 211 (150-450) 10^3/uL BMP 05/02/23 18:30 Sodium 134 L Potassium 2.7 L* Chloride 95 L Carbon Dioxide 30.6 BUN 21.0 H Creatinine 0.99 Glucose 140 H Calcium 9.3 Liver Function 05/02/23 Range/Units 18:30 Total Bilirubin 0.5 (0.2-1.0) mg/dL AST 17 (15-37) U/L ALT 9 L (14-59) U/L Alkaline Phosphatase 52 (46-116) U/L Albumin 3.7 (3.4-5.0) g/dL Urine 05/02/23 Range/Units 19:24 Urine Color Yellow (YELLOW) Urine Clarity Clear (CLEAR) Urine pH 7.0 (5.0-9.0) Ur Specific [place] 1.015 (1.005-1.025) Urine Protein Negative (NEG/TRACE) mg/dL Urine Glucose (UA) Negative (NEGATIVE) mg/dL Progress Note: A&P Assessment and Plan (1) Diarrhea: (2) Electrolyte imbalance: (3) Altered mental status: Plan The patient is a 73-year-old female with above medical problems, presenting with change in mental status. Acute metabolic encephalopathy -Likely from underlying electrolyte derangements, mild dehydration from diarrhea, possibly superimposed on mild dementia. -Provide supportive care -Discuss with family regarding baseline status Hypokalemia -Add potassium and IV fluids Hypertension -Hold chlorthalidone as she may have dehydration -Hydralazine IV as needed DVT Prophylaxis -Lovenox, SCDs Medication review -Medication reconciliation form not yet completed, awaiting on medications to be verified Goals of care -Full code Communications -Discussed with the emergency room physician -Discussed with the bedside nurse -Patient updated of plan of care, all questions answered to their satisfaction Disposition -PT evaluation - Home when medically stable Telemedicine clause -As the provider of this telehealth evaluation, requested by the patient's evaluating physician, I attest that I introduced myself to the patient, provided my credentials and determined that telemedicine via a real-time, two-way interactive audio and video platform is an appropriate and effective means of providing this service. -I reviewed the patient's chart and had a discussion with the member of the patient's treatment team. -The patient and I mutually agreed with continuation of this evaluation via telemedicine. The patient consented for the telemedicine evaluation. -This virtual encounter was taken place from [place], [place]. The encounter was approximately 35 minutes. The nurse was present during the entire time of the encounter and was able to remove the stethoscope and appropriate directions. The patient was evaluated at [facility] Telemedicine Attestation Telemedicine Attestation I conducted this encounter from [facility] via secure live, [id number] video conference with the patient, located at [facility] with nurse. Prior to the interview, the risks and benefits of telemedicine were discussed with the patient and verbal consent was obtained.
[2023-05-03] MEDS: POTASSIUM CHLORIDE-0.45% NACL 1,000 ML 100 MEQ IV ×2 (02:09→12:12)
[2023-05-03 05:44] LABS: Basophils Percent Auto 0.6 % (0.2-2.0); Eosinophils Absolute Auto 0.1 10^3/uL (0.0-0.7); Eosinophils Percent Auto 1.9 % (0.9-7.0); Hematocrit 33.5 % (36.0-48.0); Hemoglobin 11.5 g/dL (12.0-16.0); Immature Granulocytes Abs Auto 0.01 10^3/uL (0.00-0.03); Immature Granulocytes Pct Auto 0.1 % (0.0-0.5); Lymphocytes Absolute Auto 2.3 10^3/uL (1.2-3.8); Lymphocytes Percent Auto 33.9 % (20.5-60.0); Mean Corpuscular HGB Conc 34.3 g/dL (29.9-35.2); Mean Corpuscular Hemoglobin 30.5 pg (26.7-34.0); Mean Corpuscular Volume 88.9 fL (81.0-99.0); Mean Platelet Volume 9.8 fL (9.5-13.5); Monocytes Absolute Auto 0.8 10^3/uL (0.3-0.8); Monocytes Percent Auto 11.5 % (1.7-12.0); Neutrophils Absolute Auto 3.6 10^3/uL (1.4-6.5); Platelet Count 193 10^3/uL (150-450); Red Blood Count 3.77 10^6/uL (4.20-5.40); Red Cell Distribution Width 12.2 % (11.0-15.0); White Blood Count 6.9 10^3/uL (4.0-11.0)
[2023-05-03 06:05] LABS: Anion Gap 8.7; BUN Creatinine Ratio 15.9; Calcium 8.7 mg/dL (8.5-10.1); Carbon Dioxide 31.3 mmol/L (21.0-32.0); Chloride 98 mmol/L (98-107); Estimated GFR (African America >60 (>=60); Estimated GFR (Non-African Ame >60 (>=60); Glucose 101 mg/dL (74-106); Magnesium 2.1 mg/dL (1.8-2.4); Sodium 135 mmol/L (136-145)
--- NOTE | 2023-05-03 09:14 | PM.HP ---
H&P: HPI History of Present Illness Chief complaint: DIARRHEA SINCE APRIL 18 ALTER MENTAL STATUS Narrative: patient is a 73-year-old female with past medical history of depression, hypertension, hyperlipidemia who presented with approximately fifteen days of diarrhea. She states her diarrhea started on April 18 after consuming an entire bag of M and M's. She has been seen at the hospital Emergency Room as well as her primary care provider. There is been several stool studies per her daughter obtained. Most recently here her stool was negative for C. difficile. Patient does live alone but reports that she has been having about 6-8 bowel movements a day. She denies having any blood in her stool. Her daughter reports no recent colonoscopy or headache: History such as Crohn's or ulcerative colitis. She also has been getting more forgetful over the last three months and daughter has noted a progression of this. She cannot remember when she eats or drinks at this time. Daughter is concerned about safety at home alone. Patient denies any fevers chills abdominal pain cramping at this time. She denies any urinary symptoms such as urgency frequency. Review of Systems ROS Narrative ROS: a complete review of systems were reviewed with patient and are positive as below or listed in History of Chief Complaint. General: no fever, chills, night sweats Head: no headache, trauma, visual changes, nausea or vomiting Skin: no reported rashes, itching or sores Eyes: no blurriness of vision Ears: no reported hearing loss, vertigo, earache, or tinnitus Throat: no sore throat, hoarseness, swelling of neck, or tongue pain Heart: no chest pain Lungs: no shortness of breath or cough GI: diarrhea but no vomiting/nausea Urinary: no urinary urgency, frequency or pain Neuro: no numbness or tingling HEM: no bleeding issues or bruising ENDO: no thyroid problems Psych: anxiety and depression PFSH PFS Social History Within the past year, how often did you have a drink containing alcohol: never Within the past year, how often did you have six or more drinks on one occasion: never Score interpretation: A score less than 3 is consistent with normal alcohol consumption. Smoking status: Never smoker Second hand tobacco smoke exposure: No Non-prescribed substance use: denies use Previous occupational history: [employer] Highest level of school completed/degree received: high school graduate Are you now , , , , never or living with a partner: In a typical week, how many times do you talk on the telephone with family, friends, or neighbors: 3 or more times per week How often do you get together with friends or relatives: 3 or more times per week How often do you attend gnosticism or yazidism services: 4 or more times per year Do you belong to any clubs or organizations such as gnosticism groups unions, [employer] or [employer]le[employer] groups, or school groups: no Total score: 2 Score interpretation: A score of greater than or equal to 2 indicates the lowest level of social isolation. Little interest or pleasure in doing things: not at all Feeling down, depressed, or hopeless: not at all Feel stressed/tense/nervous/anxious/difficulty sleeping: not at all Do you think of yourself as: straight/heterosexual Gender Identity: female Meds Home Medications and Allergies Home Medications Medication Instructions Recorded Confirmed Type amlodipine 5 mg tablet 5 mg PO DAILY 04/25/23 05/03/23 History aspirin 81 mg capsule 81 mg PO DAILY 04/25/23 05/03/23 History atenolol 50 mg tablet 50 mg PO Q24H 04/25/23 05/03/23 History chlorthalidone 25 mg tablet 25 mg PO DAILY 04/25/23 05/03/23 History citalopram 20 mg tablet 20 mg PO DAILY 04/25/23 05/03/23 History coffee extract 100 mg-phosphatidyl 2 cap PO DAILY 04/25/23 05/03/23 History serine 100 mg capsule (Neuriva Original) multivitamin (Daily Multi-Vitamin 1 tab PO DAILY 04/25/23 05/03/23 History tablet) potassium chloride 10 mEq 10 meq PO DAILY 04/25/23 05/03/23 History tablet,extended release simvastatin 20 mg tablet 20 mg PO DAILY 04/25/23 05/03/23 History Allergies Allergy/AdvReac Type Severity Reaction Status Date / Time No Known Drug Allergies Allergy Verified 04/25/23 09:19 Exam Narrative Exam Narrative: General: Patient is alert, and oriented to person, place and time with normal affect, proper hygiene Skin: no visible rashes, or ulcers Head: atraumatic, acephalic Eyes: PERRLA, no nystagmus present, conjunctiva clear, no scleral icterus Ears: normal Tympanic Membrane, normal gross auditory acuity Nose: symmetric, no discharge, no maxillary or frontal sinus tenderness Mouth/Throat: no erythema, exudate, or tonsillar enlargement, normal dentition Neck: no masses palpated, normal thyroid, no JVD or audible carotid bruits Heart: Normal rate and rhythm, no murmurs/rubs/gallops Lungs: no audible wheezes, crackles and normal breath sounds all lung cedillo Abdomen: Normal audible bowel sounds, no distension, No palpable masses, no organomegaly, no rebound/guarding/ or rigidity Musculoskeletal: muscle atrophy noted, ROM is limited due to being in hospital bed, no swelling bilateral lower extremities Vascular: Normal carotid, radial, femoral, posterior tibial, and dorsalis pedis pulses Lymph: no supraclavicular, axillary, or anterior/posterior cervical adenopathy Neuro: CN II-X grossly intact, normal sensation upper and lower extremities Constitutional Vital Signs, click to edit/add: Last Vital Signs Temp 98.1 F 05/03/23 04:31 Pulse 77 05/03/23 08:00 Resp 16 05/03/23 04:31 BP 144/82 H 05/03/23 04:31 Pulse Ox 96 05/03/23 04:31 O2 Del Method Room Air 05/03/23 04:31 Results Labs Labs: Short CBC 05/02/23 05/03/23 Range/Units 18:30 04:30 WBC 6.8 6.9 (4.0-11.0) 10^3/uL Hgb 12.2 11.5 L (12.0-16.0) g/dL Hct 35.7 L 33.5 L (36.0-48.0) % Plt Count 211 193 (150-450) 10^3/uL BMP 05/02/23 05/03/23 18:30 04:30 Sodium 134 L 135 L Potassium 2.7 L* 3.0 L Chloride 95 L 98 Carbon Dioxide 30.6 31.3 BUN 21.0 H 13.0 Creatinine 0.99 0.82 Glucose 140 H 101 Calcium 9.3 8.7 Liver Function 05/02/23 Range/Units 18:30 Total Bilirubin 0.5 (0.2-1.0) mg/dL AST 17 (15-37) U/L ALT 9 L (14-59) U/L Alkaline Phosphatase 52 (46-116) U/L Albumin 3.7 (3.4-5.0) g/dL Urine 05/02/23 Range/Units 19:24 Urine Color Yellow (YELLOW) Urine Clarity Clear (CLEAR) Urine pH 7.0 (5.0-9.0) Ur Specific [place] 1.015 (1.005-1.025) Urine Protein Negative (NEG/TRACE) mg/dL Urine Glucose (UA) Negative (NEGATIVE) mg/dL Assessment and Plan Assessment and Plan (1) Diarrhea: Assessment and Plan: patient's stool studies from 04/30/2023 showed no evidence of C. difficile or Escherichia coli overgrowth. We'll continue symptom treatment of the diarrhea with loperamide and will add Levbid daily and see if this helps. Due to the diarrhea at this point could be more irritable bowel than infectious. Would recommend outpatient preventative colonoscopy.also patient is been afebrile and a normal white count so again less likely infectious. 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 No neurological deficits noted on exam this morning. Daughter does report progressive memory dementia-like symptoms over the last 3-4 months. PTOT evaluation for concern for safety at home. (4) Hypertension: Assessment and Plan: continue home chlorthalidone and amlodipine (5) Hyperlipidemia: Assessment and Plan: continue home atorvastatin Plan patient is a full code Continue Lovenox for deep vein thrombosis prophylaxis patient is in observation status and is not expected to stay more than two midnight
--- NOTE | 2023-05-03 09:20 | MR_ITS ---
The [address] [address] Patient Name: MIGUEL ANGEL MCDONALD MRN: [id number] date: 1950 Sex: F Assigned Patient Location: [place] Current Patient Location: [place] Accession/Order Number: [id number] Exam Date: 05/03/2023 16:36 Report Date: 05/03/2023 20:00 At the request of: ROBERT MOISE Procedure: MR head/brain wo con EXAMINATION: MR head/brain wo con HISTORY: old vs new infarct on ct TECHNIQUE: MRI brain routine protocol without contrast. COMPARISON: CT brain 05/02/2023 RESULT: Acute Change: No evidence of an acute intracranial process. Hemorrhage: No evidence of prior parenchymal hemorrhage on the susceptibility weighted sequences. Mass Lesion/ Mass Effect: No evidence of an intracranial mass or extra-axial fluid collection. No significant mass effect. Chronic Change: Scattered patchy and confluent areas of increased T2 and FLAIR signal are present in the supratentorial white matter which is nonspecific but likely represents chronic microvascular ischemia. Large area of encephalomalacia, gliosis and cortical laminar necrosis within the left cerebral hemisphere involving the frontoparietal and temporal lobes, from prior left MCA distribution infarct. Parenchyma: There is moderate generalized parenchymal volume loss. Ventricles: Ventriculomegaly corresponds to the degree of parenchymal volume loss. Skull Base: Hypothalamic and pituitary region are grossly normal. Craniocervical junction is normal. No significant marrow replacement process. Vasculature: Major intracranial arteries and dural venous sinuses demonstrate typical flow voids, suggesting patency by spin echo criteria. Other: The paranasal sinuses and mastoid air cells are clear. The orbits and extracranial soft tissues are unremarkable. MR/MR head/brain wo con IMPRESSION: 1. No acute intracranial abnormality; no acute infarct, intracranial hemorrhage or extra-axial collection. 2. 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 Chronic microvascular ischemia and involutional changes. Electronically authenticated by: KE BEAL Date: 05/03/2023 20:00
--- NOTE | 2023-05-03 12:26 | CM.NOTE ---
Rounds made with Dr. Mendoza, discussed plan of care with pt and daughter. Pt will have MRI today. Pt voices about diarrhea continuing, Dr. Mendoza will order Imodium for pt and awaiting stool cultures. Daughter states she has had this before and they have recommended pt have a colonoscopy but pt has refused.
--- NOTE | 2023-05-03 12:41 | CM.NOTE ---
Medicare Outpatient Observation Notice discussed with pt, pt verbalizes understanding and signs paper. Original given to pt and copy placed on pt's chart.
[2023-05-03] MEDS: ATENOLOL 50 MG TABLET PO (14:13)
[2023-05-03] MEDS: ATORVASTATIN CALCIUM 10 MG TABLET PO (21:23)
[2023-05-03] MEDS: DICYCLOMINE HCL 10 MG CAPSULE PO (21:23)
[2023-05-04] VITALS (8 sets, daily range): BP systolic 115–145; BP diastolic 74–78; PULSE 54–76; RESP 16; TEMP 36.8–37.2; O2SAT 95
[2023-05-04] MEDS: CHLORTHALIDONE 25 MG TABLET PO (08:43)
[2023-05-04] MEDS: ENOXAPARIN SODIUM 40 MG/0.4 ML SYRINGE SUBQ (08:43)
[2023-05-04] MEDS: DICYCLOMINE HCL 10 MG CAPSULE PO (08:44)
[2023-05-04] MEDS: AMLODIPINE BESYLATE 5 MG TABLET PO (08:44)
[2023-05-04] MEDS: CITALOPRAM HYDROBROMIDE 20 MG TABLET PO (08:44)
[2023-05-04] MEDS: MULTIVITAMIN TABLET 400 TAB PO (08:44)
[2023-05-04] MEDS: ASPIRIN 81 MG TAB.CHEW PO (08:44)
--- NOTE | 2023-05-04 09:12 | PM.DS1 ---
DS: Providers Provider Date of admission: 05/02/23 21:06 Primary care physician: DEBBIE GOMEZ Admitting clinician: Shyann Pierson Consults: 05/03/23 00:47 Physical Therapy Eval and Treat Routine 05/03/23 09:19 Occupational Therapy Eval and Treat Routine Attending physician on discharge: Laurie Mendoza DS: Diagnosis Discharge Diagnosis (1) Diarrhea: (2) Electrolyte imbalance: (3) Altered mental status: (4) Hypertension: (5) Hyperlipidemia: Plan patient is a 73-year-old female with past medical history of depression, hypertension, hyperlipidemia who presented with approximately fifteen days of diarrhea. She states her diarrhea started on April 18 after consuming an entire bag of M and M's. She has been seen at the hospital Emergency Room as well as her primary care provider. There is been several stool studies per her daughter obtained. Most recently here her stool was negative for C. difficile. Patient does live alone but reports that she has been having about 6-8 bowel movements a day. She denies having any blood in her stool. Her daughter reports no recent colonoscopy or headache: History such as Crohn's or ulcerative colitis. She also has been getting more forgetful over the last three months and daughter has noted a progression of this. She cannot remember when she eats or drinks at this time. Daughter is concerned about safety at home alone. Patient denies any fevers chills abdominal pain cramping at this time. She denies any urinary symptoms such as urgency frequency. No changes this morning but patient wants to go home. DS: Summary Hospital Course Hospital Course: (1) Diarrhea: ?Assessment and Plan: patient's stool studies from 04/30/2023 showed no evidence of C. difficile or Escherichia coli or bacterial overgrowth. We'll continue symptom treatment of the diarrhea with loperamide and will add Levbid daily but did not help. Due to the diarrhea at this point could be more irritable bowel than infectious or diverticulitis, I will try her on cipro and flagyl combination as outpatient and have her follow up with her pcp. Would recommend outpatient preventative colonoscopy.also patient is been afebrile and a normal white count so again less likely infectious. 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 No neurological deficits noted on exam. Daughter does report progressive memory dementia-like symptoms over the last 3-4 months. PTOT evaluation for concern for safety at home. but did fine for them. All changes seen are chronic or old, nothing acute, continue statin therapy and place on daily 325mg aspirin. may benefit from outpatient neuropsych consult. (4) Hypertension: ?Assessment and Plan: continue home chlorthalidone and amlodipine (5) Hyperlipidemia: ?Assessment and Plan: continue home atorvastatin discharge home today. Labs normal. Status at Discharge Functional status at discharge: independent ambulation Time Spent with Patient Time attestation: Total time spent providing and/or coordinating discharge services: Exam Narrative Exam Narrative: General: Patient is alert, and oriented to person, place and time with normal affect, proper hygiene Skin: no visible rashes, or ulcers Head: atraumatic, acephalic Eyes: PERRLA, no nystagmus present, conjunctiva clear, no scleral icterus Ears: normal Tympanic Membrane, normal gross auditory acuity Nose: symmetric, no discharge, no maxillary or frontal sinus tenderness Mouth/Throat: no erythema, exudate, or tonsillar enlargement, normal dentition Neck: no masses palpated, normal thyroid, no JVD or audible carotid bruits Heart: Normal rate and rhythm, no murmurs/rubs/gallops Lungs: no audible wheezes, crackles and normal breath sounds all lung cedillo Abdomen: Normal audible bowel sounds, no distension, No palpable masses, no organomegaly, no rebound/guarding/ or rigidity Musculoskeletal: muscle atrophy noted, ROM is limited due to being in hospital bed, no swelling bilateral lower extremities Vascular: Normal carotid, radial, femoral, posterior tibial, and dorsalis pedis pulses Lymph: no supraclavicular, axillary, or anterior/posterior cervical adenopathy Neuro: CN II-X grossly intact, normal sensation upper and lower extremities Constitutional Vital Signs, click to edit/add: Last Vital Signs Temp 98.3 F 05/04/23 05:23 Pulse 76 05/04/23 07:46 Resp 16 05/04/23 05:23 BP 145/78 H 05/04/23 05:23 Pulse Ox 95 07/18/23 05:23 O2 Del Method Room Air 05/04/23 05:23 Discharge Plan Discharge Disposition: Home, Self-Care (OBS FB) Condition: Fair Discharge Medications: New metronidazole 250 mg Tablet 500 mg PO BID 7 Days Qty: 28 0RF ciprofloxacin HCl 500 mg Tablet 500 mg PO BID 7 Days Qty: 14 0RF Continued amlodipine 5 mg tablet 5 mg PO DAILY atenolol 50 mg tablet 50 mg PO Q24H chlorthalidone 25 mg tablet 25 mg PO DAILY citalopram 20 mg tablet 20 mg PO DAILY simvastatin 20 mg tablet 20 mg PO DAILY Neuriva Original 100-100 mg capsule 2 cap PO DAILY multivitamin [Daily Multi-Vitamin] Tablet 1 tab PO DAILY Changed potassium chloride 10 mEq tablet extended release 10 meq PO BID Qty: 60 0RF aspirin 81 mg capsule 325 mg PO DAILY Qty: 30 0RF Activity: increase activity as tolerated Diet: advance to your usual diet Patient Instructions: Ciprofloxacin (By mouth), Metronidazole (By mouth) Follow Up Appointments: Dr. Gomez may 13 2023 @ 1245 pm, Discharge Date/Time: 05/04/23 13:39
[2023-05-04 09:19] LABS: Basophils Percent Auto 0.6 % (0.2-2.0); Eosinophils Absolute Auto 0.1 10^3/uL (0.0-0.7); Eosinophils Percent Auto 1.9 % (0.9-7.0); Hematocrit 38.8 % (36.0-48.0); Hemoglobin 13.6 g/dL (12.0-16.0); Immature Granulocytes Abs Auto 0.02 10^3/uL (0.00-0.03); Immature Granulocytes Pct Auto 0.4 % (0.0-0.5); Lymphocytes Absolute Auto 2.1 10^3/uL (1.2-3.8); Lymphocytes Percent Auto 39.3 % (20.5-60.0); Mean Corpuscular HGB Conc 35.1 g/dL (29.9-35.2); Mean Corpuscular Hemoglobin 30.6 pg (26.7-34.0); Mean Corpuscular Volume 87.4 fL (81.0-99.0); Mean Platelet Volume 9.1 fL (9.5-13.5); Monocytes Absolute Auto 0.5 10^3/uL (0.3-0.8); Monocytes Percent Auto 9.7 % (1.7-12.0); Neutrophils Absolute Auto 2.6 10^3/uL (1.4-6.5); Neutrophils Percent Auto 48.1 % (43.0-75.0); Platelet Count 228 10^3/uL (150-450); Red Blood Count 4.44 10^6/uL (4.20-5.40); Red Cell Distribution Width 12.5 % (11.0-15.0); White Blood Count 5.4 10^3/uL (4.0-11.0)
[2023-05-04] MEDS: CIPROFLOXACIN HCL 500 MG TABLET PO (09:25)
[2023-05-04] MEDS: METRONIDAZOLE 250 MG TABLET 500 MG PO (09:25)
[2023-05-04 09:30] LABS: Alanine Aminotransferase 19 U/L (14-59); Albumin Globulin Ratio 0.9; Albumin Level 3.8 g/dL (3.4-5.0); Alkaline Phosphatase 60 U/L (46-116); Anion Gap 11.2; Aspartate Amino Transferase 19 U/L (15-37); BUN Creatinine Ratio 13.1; Bilirubin Total 0.8 mg/dL (0.2-1.0); Calcium 9.9 mg/dL (8.5-10.1); Carbon Dioxide 30.1 mmol/L (21.0-32.0); Chloride 100 mmol/L (98-107); Estimated GFR (African America >60 (>=60); Estimated GFR (Non-African Ame >60 (>=60); Glucose 101 mg/dL (74-106); Potassium 3.3 mmol/L (3.5-5.1); Sodium 138 mmol/L (136-145); Total Protein 7.8 g/dL (6.4-8.2)
--- NOTE | 2023-05-04 11:03 | SWNOTE1 ---
ROCÍO met with pt and daughter in room. SW did ask pt how she was feeling, she stated physically well, but mentally she does feel off. Pt lives at home alone, daughter lives close by and checks in daily. Pt is independent at home. SW did let daughter and pt know that pt did well with therapy and she does not qualify for SNF. ROCÍO explained she has no skilled need, no wound care, no IVs, does not need therapy. Pt's daughter did ask about congitive threapy, SW let her know unfortunaly it does not qualify her for SNF stay under her insurance. SW did talk with daughter about assisted living, [facility], and private care givers. SW also spoke with daughter about medicaid, she was aware of spending down/assets. SW did ask daughter if PCP has evaluated and she stated yes, but it is always brushed aside. ROCÍO also recommended putting cameras in the home to monitor. At this time pt's daughter did not voice any other needs. She does have all resources. May look into private caregivers to visit with pt during a meal daily. SW to follow as needed and updated catalytic case operator who rounds with doctor.
--- NOTE | 2023-05-04 13:28 | CM.NOTE ---
Rounds made with florentin Anderson for discharge to home today and f/u with family doctor next week. Discussed results of CT scan with pt and daughter. Pt will start ASA daily at discharge.
--- NOTE | 2023-05-10 15:34 | CM.DCFOLLOWU ---
Person spoke with:patient How are you feeling? well How is your pain? no pain Did you understand your discharge instructions? yes Do you have any questions about your discharge instructions? no Were you given any prescriptions at discharge? yes Were you able to get your prescriptions filled? yes Do you understand how to take your medications as ordered? yes Do you have any questions about your follow up appointment and do you plan to keep your follow up appointment? no questions and follow up on 05/13/23 Is there anything else that you would like to discuss? no Questions/Comments/Concerns/Other:
== END 2023-05-04 13:39 | disposition home or self-care (01) ==
LOC: ER 20:35 → MS 21:08
PROVIDERS: Internal Medicine; Personal Emergency Response Attendant; Admitting Provider Family Medicine; Emergency Provider Emergency Medicine; PCP Family Medicine; Visit Provider Family Medicine
DX: R19.7 Diarrhea, unspecified (principal); E87.6 Hypokalemia; R41.82 Altered mental status, unspecified; I10 Essential (primary) hypertension; E78.5 Hyperlipidemia, unspecified; R10.9 Unspecified abdominal pain; Z87.442 Personal history of urinary calculi; Z79.899 Other long term (current) drug therapy; Z79.82 Long term (current) use of aspirin
CPT/HCPCS: 36415; 70450; 70551; 71045; 80048; 80053; 80179; 80320; 80329; 81003; 82140; 83605; 83690; 83735; 84443; 84484; 85025; 85610; 85652; 86140; 87040; 93005; 96361; 96365; 96366; 96367; 96372; 97161; 97165; 99285; G0378; Q3014